=== PATIENT | female | born 1985 | race Two or more races ===

== ENCOUNTER 2019-04-30 06:59 | Outpatient (CLI) | payer BC | END 2019-04-30 15:00 | disposition home or self-care (01) | LOC: LAB 06:59 | DX: E78.49 Other hyperlipidemia (principal); E55.9 Vitamin D deficiency, unspecified; Z00.00 Encounter for general adult medical examination without abnormal findings; R10.84 Generalized abdominal pain ==

== ENCOUNTER 2019-04-30 07:54 | Outpatient (CLI) | payer BC | END 2019-04-30 07:58 | disposition home or self-care (01) | LOC: SONOGRAMA 07:54 | DX: R10.84 Generalized abdominal pain (principal) ==